=== PATIENT | female | born 1970 | race Two or more races ===

== ENCOUNTER 2018-07-02 09:40 | Emergency (ER) | payer MEDICAID ==
[2018-07-02] MEDS ORDERED: SUMAtriptan 6 MG/0.5 ML SDV SUBCUT ONE (09:55)
[2018-07-02] MEDS ORDERED: Sodium Chloride 0.9% 10 ML Syringe FLUSH PRN (10:19)
[2018-07-02] MEDS ORDERED: Ondansetron 4 MG/2 ML SDV IVPUSH ONE (10:19)
[2018-07-02] MEDS ORDERED: Sodium Chloride 0.9% 1,000 ML IV SCH (10:30)
[2018-07-02] MEDS ORDERED: Metoclopramide 10 MG/2 ML SDV IVPUSH ONE (10:49)
[2018-07-02] MEDS ORDERED: Ketorolac 30 MG/ML SDV IVPUSH ONE (10:49)
--- NOTE | 2018-07-02 11:15 | EDM.PDOC ---
ED HPI GENERAL MEDICAL PROBLEM - General Chief Complaint: Headache Stated Complaint: MEDICAL VIA [facility] Time Seen by Provider: 07/02/18 10:00 Source of Information: Reports: Patient, EMS, Family History Limitations: Reports: No Limitations - History of Present Illness INITIAL COMMENTS - FREE TEXT/NARRATIVE: 47-year-old female with a history of vascular headaches presents by ambulance with a severe migraine for the past 12 hours. It's right-sided, periorbital, she is photophobic and nauseous. It is typical of her previous migraines only worse. Also more persistent. No neurologic complaints such as weakness or numbness or asymmetry. Onset: Sudden Location: Reports: Head Severity: Severe Headache Pain Score (Numeric/FACES): 10 - Related Data Allergies Allergy/AdvReac Type Severity Reaction Status Date / Time prochlorperazine Allergy Hallucinati Verified 07/02/18 09:48 [From Compazine] ons Home Meds: Home Meds Omeprazole 20 mg PO DAILY 06/06/18 [History] Past Medical History HEENT History: Reports: Impaired Vision Gastrointestinal History: Reports: GERD - Past Surgical History GI Surgical History: Reports: Cholecystectomy Female Surgical History: Reports: Other (See Below) Other Female Surgeries/Procedures: cin3 procedure Oct 2017 Social & Family History - Tobacco Use Smoking Status *Q: Never Smoker - Caffeine Use Caffeine Use: Reports: Coffee - Alcohol Use Days Per Week of Alcohol Use: 7 Number of Drinks Per Day: 1 Total Drinks Per Week: 7 - Recreational Drug Use Recreational Drug Use: No ED ROS GENERAL - Review of Systems Review Of Systems: See Below Constitutional: Reports: Malaise. Denies: Fever, Chills HEENT: Denies: Vision Change Respiratory: Denies: Shortness of Breath GI/Abdominal: Reports: Nausea. Denies: Vomiting : Reports: No Symptoms Skin: Reports: No Symptoms Neurological: Reports: Headache Psychiatric: Reports: No Symptoms - Physical Exam Exam: See Below Exam Limited By: No Limitations General Appearance: Alert, Moderate Distress (Appears very uncomfortable) Eye Exam: Bilateral Eye: EOMI, PERRL Head Exam: Atraumatic Respiratory/Chest: No Respiratory Distress Neuro Exam (Abbreviated): Alert, Oriented, No Motor/Sensory Deficits Psychiatric: Normal Affect, Normal Mood Skin Exam: Warm, Dry Course - Vital Signs Last Recorded V/S: Last Vital Signs Temp 97.5 F 07/02/18 09:51 Pulse 101 H 07/02/18 10:56 Resp 16 07/02/18 10:56 BP 126/85 07/02/18 10:56 Pulse Ox 97 07/02/18 10:56 - Orders/Labs/Meds Orders: Active Orders 24 hr Category Date Time Status Saline Lock Insert [OM.PC] Routine Oth 07/02/18 10:19 Ordered Meds: Medications Discontinued Medications Generic Name Dose Route Start Last Admin Trade Name Freq PRN Reason Stop Dose Admin Sodium Chloride 1,000 mls @ 1,000 mls/hr 07/02/18 10:30 07/02/18 10:27 Normal Saline IV 1,000 mls/hr ASDIRECTED MARQUEZ Administration Ketorolac Tromethamine 30 mg 07/02/18 10:49 07/02/18 10:54 Toradol IVPUSH 07/02/18 10:50 30 mg ONETIME ONE Administration Metoclopramide HCl 5 mg 07/02/18 10:49 07/02/18 10:54 Reglan IVPUSH 07/02/18 10:50 5 mg ONETIME ONE Administration Ondansetron HCl 4 mg 07/02/18 10:19 07/02/18 10:27 Zofran IVPUSH 07/02/18 10:20 4 mg ONETIME ONE Administration Sodium Chloride 10 ml 07/02/18 10:19 07/02/18 10:27 Saline Flush FLUSH 10 ml ASDIRECTED PRN Administration Keep Vein Open Sumatriptan Succinate 6 mg 07/02/18 09:55 07/02/18 10:01 Imitrex SUBCUT 07/02/18 09:56 6 mg ONETIME ONE Administration - Re-Assessments/Exams Free Text/Narrative Re-Assessment/Exam: 07/02/18 11:33 6 mg of subcutaneous Imitrex was given, it did have some effect on the headache but also made her more nauseous and she's had several episodes of vomiting. An IV was then started and she was given 4 mg of IV Zofran and 1 L of normal saline started. After 20 minutes her headache was still at a "7" so she was given 30 mg of IV Toradol and 5 mg of Reglan. This gave her good relief down to a 2 and she was comfortable going home. Departure - Departure Time of Disposition: 11:58 Disposition: Home, Self-Care 01 Condition: Good Clinical Impression: Migraine - Discharge Information Instructions: Migraine Headache, [id number] Referrals: PCP,None [Primary Care Provider] - Forms: ED Department Discharge Care Plan Goals: Rest today, a repeat dose of ibuprofen or naproxen may be helpful and increase activity as tolerated. Consider rechecking tomorrow if not improving satisfactorily. - My Orders Last 24 Hours: My Active Orders 07/02/18 10:19 Saline Lock Insert [OM.PC] Routine - Assessment/Plan Last 24 Hours: My Active Orders 07/02/18 10:19 Saline Lock Insert [OM.PC] Routine
== END 2018-07-02 11:58 | disposition home or self-care (01) ==
LOC: JP.ED 09:40
DX: G43.909 Migraine, unspecified, not intractable, without status migrainosus (principal); Z88.8 Allergy status to other drugs, medicaments and biological substances; Z79.899 Other long term (current) drug therapy
CPT/HCPCS: 96361; 96372; 96374; 96375; 99284; J1885; J2405; J2765; J3030; J7030; J7050

== ENCOUNTER 2019-04-15 14:56 | Emergency (ER) | payer MEDICAID ==
--- NOTE | 2019-04-15 16:25 | CRLCT ---
INDICATION: Lower abdominal pain. TECHNIQUE: Noncontrast CT scan of the abdomen and pelvis. FINDINGS: The lung bases are unremarkable. No focal abnormalities identified in the visualized portions of the liver, spleen, pancreas, adrenal glands, and knees. No hydronephrosis. No uroliths. No gross abnormalities of the uterus or ovaries. The GI tract is incompletely distended but shows no gross abnormalities. The stomach and GE junction are not well assessed. Normal appendix. No retroperitoneal, pelvic sidewall, or mesenteric adenopathy. IMPRESSION: 1. No acute abnormalities of the abdomen or pelvis identified. Dictated by Chris Pacheco MD @ 04/15/2019 4:23:46 PM Please note that all CT scans at this facility use dose modulation, iterative reconstruction, and/or weight-based dosing when appropriate to reduce radiation dose to as low as reasonably achievable. Dictated by: Chris Pacheco MD @ 04/15/2019 16:23:55 (Electronically Signed)
--- NOTE | 2019-04-15 16:33 | EDM.PDOC ---
ED HPI GENERAL MEDICAL PROBLEM - General Chief Complaint: General Stated Complaint: RIGHT SIDE PAIN Time Seen by Provider: 04/15/19 15:15 Source of Information: Reports: Patient, Provider History Limitations: Reports: No Limitations - History of Present Illness INITIAL COMMENTS - FREE TEXT/NARRATIVE: 48-year-old female presented to clinic with nausea and diarrhea for the past day , a brief exam revealed right lower quadrant pain so she was sent over to the emergency room. She also has some dysuria. No fevers or chills. Onset: Gradual (Over the past 24 hours) Associated Symptoms: Reports: Loss of Appetite, Malaise. Denies: Fever/Chills Right Abdominal Pain Score (Numeric/FACES): 7 - Related Data Allergies Allergy/AdvReac Type Severity Reaction Status Date / Time prochlorperazine Allergy Hallucinati Verified 07/02/18 09:48 [From Compazine] ons Home Meds: Home Meds NK [No Known Home Meds] 04/15/19 [History] Past Medical History HEENT History: Reports: Impaired Vision Gastrointestinal History: Reports: GERD - Past Surgical History GI Surgical History: Reports: Cholecystectomy Female Surgical History: Reports: Other (See Below) Other Female Surgeries/Procedures: cin3 procedure Oct 2017 Social & Family History - Tobacco Use Smoking Status *Q: Never Smoker - Caffeine Use Caffeine Use: Reports: Coffee - Recreational Drug Use Recreational Drug Use: No ED ROS GENERAL - Review of Systems Review Of Systems: See Below Constitutional: Reports: Malaise, Decreased Appetite. Denies: Fever, Chills HEENT: Reports: No Symptoms Respiratory: Denies: Shortness of Breath GI/Abdominal: Reports: Abdominal Pain, Diarrhea, Nausea. Denies: Vomiting : Reports: Dysuria. Denies: Frequency Skin: Reports: No Symptoms ED EXAM, GENERAL - Physical Exam Exam: See Below Exam Limited By: No Limitations General Appearance: Alert, No Apparent Distress (Looks uncomfortable but not distressed) Eye Exam: Bilateral Eye: Normal Inspection (No jaundice) Head: Atraumatic Respiratory/Chest: No Respiratory Distress, Lungs Clear Cardiovascular: Regular Rate, Rhythm GI/Abdominal: Soft, Tender (She is tender in the right lower quadrant with some mild guarding, no significant rebound tenderness) Neurological: Alert, Oriented Skin Exam: Warm, Dry Course - Vital Signs Last Recorded V/S: Last Vital Signs Temp 97.8 F 04/15/19 15:15 Pulse 81 04/15/19 15:15 Resp 16 04/15/19 15:15 BP 115/72 04/15/19 15:15 Pulse Ox 99 04/15/19 15:15 - Orders/Labs/Meds Labs: Laboratory Tests 04/15/19 04/15/19 04/15/19 Range/Units 15:48 15:57 15:57 WBC 10.6 (4.5-11.0) K/uL RBC 4.40 (3.30-5.50) M/uL Hgb 13.3 (12.0-15.0) g/dL Hct 40.4 (36.0-48.0) % MCV 92 (80-98) fL MCH 30 (27-31) pg MCHC 33 (32-36) % Plt Count 299 (150-400) K/uL Neut % (Auto) 59 (36-66) % Lymph % (Auto) 30 (24-44) % [place] % (Auto) 10 H (2-6) % Eos % (Auto) 1 L (2-4) % Baso % (Auto) 0 (0-1) % Sodium 141 (140-148) mmol/L Potassium 3.8 (3.6-5.2) mmol/L Chloride 105 (100-108) mmol/L Carbon Dioxide 30 (21-32) mmol/L Anion Gap 6.1 (5.0-14.0) mmol/L BUN 11 (7-18) mg/dL Creatinine 0.9 (0.6-1.0) mg/dL Est Cr Clr Drug Dosing 55.51 mL/min Estimated GFR (MDRD) > 60 (>60) Glucose 93 (74-106) mg/dL Calcium 9.2 (8.5-10.1) mg/dL Total Bilirubin 0.2 (0.2-1.0) mg/dL AST 17 (15-37) U/L ALT 30 (12-78) U/L Alkaline Phosphatase 81 (46-116) U/L Total Protein 7.2 (6.4-8.2) g/dL Albumin 3.7 (3.4-5.0) g/dL Globulin 3.5 (2.3-3.5) g/dL Albumin/Globulin Ratio 1.1 L (1.2-2.2) Urine Color Yellow Urine Appearance Slightly cloudy Urine pH 7.0 (4.5-8.0) Ur Specific [place] 1.010 (1.008-1.030) Urine Protein Negative (NEGATIVE) mg/dL Urine Glucose (UA) Normal (NEGATIVE) mg/dL Urine Ketones Negative (NEGATIVE) mg/dL Urine Occult Blood Moderate (NEGATIVE) Urine Nitrite Negative (NEGATIVE) Urine Bilirubin Negative (NEGATIVE) Urine Urobilinogen Normal (NORMAL) mg/dL Ur Leukocyte Esterase Negative (NEGATIVE) Urine RBC 0-5 (0-5) Urine WBC 0-5 (0-5) Ur Epithelial Cells Rare Amorphous Sediment Not seen Urine Bacteria Rare Urine Mucus Not seen - Re-Assessments/Exams Free Text/Narrative Re-Assessment/Exam: 04/15/19 16:32 CBC CMP and UA were obtained as well as a CT scan without contrast. Everything was normal. Patient was discharged with a diagnosis of viral gastroenteritis, a note for work for the next 2 days and should rest, increase activity and diet as tolerated and return if worsening. Departure - Departure Time of Disposition: 17:01 Disposition: Home, Self-Care 01 Condition: Good Clinical Impression: Viral gastroenteritis - Discharge Information Instructions: Viral Gastroenteritis, Adult Referrals: PCP,None [Primary Care Provider] - Forms: ED Department Discharge Care Plan Goals: Rest the next several days increasing diet and activity as tolerated. Return if worsening such as fever spikes or increased pain.
== END 2019-04-15 16:57 | disposition home or self-care (01) ==
LOC: JP.ED 14:56
DX: A08.4 Viral intestinal infection, unspecified (principal); Z88.8 Allergy status to other drugs, medicaments and biological substances
CPT/HCPCS: 36415; 74176; 80053; 81001; 85025; 99284-25

== ENCOUNTER 2019-09-04 11:38 | Emergency (ER) | payer MEDICAID ==
[2019-09-04] MEDS ORDERED: Aspirin 81 MG Tab.Chew PO ONE (12:01)
[2019-09-04] MEDS ORDERED: Ketorolac 60 MG/2 ML SDV IM ONE (12:02)
[2019-09-04] MEDS ORDERED: Ondansetron 4 MG Tab.DIS PO ONE (12:03)
--- NOTE | 2019-09-04 12:04 | EDM.PDOC ---
ED HPI GENERAL MEDICAL PROBLEM - General Chief Complaint: Cardiovascular Problem Stated Complaint: CHEST PAIN Time Seen by Provider: 09/04/19 11:58 Source of Information: Reports: Patient, RN Notes Reviewed History Limitations: Reports: No Limitations - History of Present Illness INITIAL COMMENTS - FREE TEXT/NARRATIVE: 48-year-old female presents emergency department today complaint chest pain, she states the pain started last night while she was lying in bed at this time she is chest pain-free but still has some residual discomfort in her neck and arm. She has been moving but has not lifted anything for the last 3 days. No shortness of breath does feel nauseated an episode of diaphoresis this morning. No tobacco use no cardiac history no family history Left Arm Pain Score (Numeric/FACES): 7 - Related Data Allergies Allergy/AdvReac Type Severity Reaction Status Date / Time prochlorperazine Allergy Hallucinati Verified 09/04/19 11:57 [From Compazine] ons Home Meds: Home Meds NK [No Known Home Meds] 04/15/19 [History] Past Medical History HEENT History: Reports: Impaired Vision Gastrointestinal History: Reports: GERD - Past Surgical History GI Surgical History: Reports: Cholecystectomy Female Surgical History: Reports: Other (See Below) Other Female Surgeries/Procedures: cin3 procedure Oct 2017 Social & Family History - Tobacco Use Smoking Status *Q: Never Smoker - Caffeine Use Caffeine Use: Reports: Coffee, Tea - Recreational Drug Use Recreational Drug Use: No ED ROS GENERAL - Review of Systems Review Of Systems: See Below Constitutional: Reports: Diaphoresis HEENT: Reports: No Symptoms Respiratory: Reports: No Symptoms Cardiovascular: Reports: Chest Pain GI/Abdominal: Reports: Nausea : Reports: No Symptoms ED EXAM, GENERAL - Physical Exam Exam: See Below Exam Limited By: No Limitations General Appearance: Alert, WD/WN, No Apparent Distress Respiratory/Chest: No Respiratory Distress, Lungs Clear, Normal Breath Sounds, No Accessory Muscle Use, Chest Non-Tender Cardiovascular: Regular Rate, Rhythm, No Murmur GI/Abdominal: Soft, Non-Tender Course - Vital Signs Last Recorded V/S: Last Vital Signs Temp 98.1 F 09/04/19 11:55 Pulse 70 09/04/19 13:16 Resp 12 09/04/19 13:16 BP 118/81 09/04/19 13:16 Pulse Ox 97 09/04/19 13:16 - Orders/Labs/Meds Orders: Active Orders 24 hr Category Date Time Status Cardiac Monitoring [RC] .As Directed Care 09/04/19 12:01 Active EKG Documentation Completion [RC] ASDIRECTED Care 09/04/19 12:02 Active EKG 12 Lead [EK] Stat Ther 09/04/19 12:02 Ordered Labs: Laboratory Tests 09/04/19 09/04/19 09/04/19 Range/Units 12:13 12:13 12:13 WBC 6.5 (4.5-11.0) K/uL RBC 4.27 (3.30-5.50) M/uL Hgb 13.2 (12.0-15.0) g/dL Hct 39.2 (36.0-48.0) % MCV 92 (80-98) fL MCH 31 (27-31) pg MCHC 34 (32-36) % Plt Count 307 (150-400) K/uL Neut % (Auto) 50 (36-66) % Lymph % (Auto) 39 (24-44) % [place] % (Auto) 9 H (2-6) % Eos % (Auto) 2 (2-4) % Baso % (Auto) 0 (0-1) % D-Dimer, Quantitative 224 (0.0-400.0) ng/mL Sodium (140-148) mmol/L Potassium (3.6-5.2) mmol/L Chloride (100-108) mmol/L Carbon Dioxide (21-32) mmol/L Anion Gap (5.0-14.0) mmol/L BUN (7-18) mg/dL Creatinine (0.6-1.0) mg/dL Est Cr Clr Drug Dosing mL/min Estimated GFR (MDRD) (>60) BUN/Creatinine Ratio Glucose (74-106) mg/dL Calcium (8.5-10.1) mg/dL Total Bilirubin (0.2-1.0) mg/dL AST (15-37) U/L ALT (12-78) U/L Alkaline Phosphatase (46-116) U/L Troponin I (0.000-0.056) ng/mL Total Protein (6.4-8.2) g/dL Albumin (3.4-5.0) g/dL Globulin (2.3-3.5) g/dL Albumin/Globulin Ratio (1.2-2.2) Meds: Medications Discontinued Medications Generic Name Dose Route Start Last Admin Trade Name Shonna PRN Reason Stop Dose Admin Aspirin 324 mg 09/04/19 12:01 09/04/19 12:08 Aspirin PO 09/04/19 12:02 324 mg ONETIME ONE Administration Ketorolac Tromethamine 60 mg 09/04/19 12:02 09/04/19 12:10 Toradol IM 09/04/19 12:03 60 mg ONETIME ONE Administration Ondansetron HCl 4 mg 09/04/19 12:03 09/04/19 12:10 Zofran Odt PO 09/04/19 12:04 4 mg ONETIME ONE Administration Departure - Departure Time of Disposition: 14:09 Disposition: Home, Self-Care 01 Condition: Fair Clinical Impression: Chest wall pain Referrals: PCP,None [Primary Care Provider] - Forms: ED Department Discharge Additional Instructions: Continue to use ibuprofen as needed for pain control, Please followup with your primary care provider in 3-5 days if not better, please call return to the emergency department with worsening of symptoms. - My Orders Last 24 Hours: My Active Orders 09/04/19 12:01 Cardiac Monitoring [RC] .As Directed 09/04/19 12:02 EKG Documentation Completion [RC] ASDIRECTED EKG 12 Lead [EK] Stat - Assessment/Plan Last 24 Hours: My Active Orders 09/04/19 12:01 Cardiac Monitoring [RC] .As Directed 09/04/19 12:02 EKG Documentation Completion [RC] ASDIRECTED EKG 12 Lead [EK] Stat Plan: Assessment Acuity = acute Site and laterality = chest wall pain Etiology = secondary to moving lifting injury Manifestations = none Location of injury = Home Lab values = CBC, CMP, troponin, EKG, chest x-ray all within normal limits Plan Did review lab work EKG results with her she had good relief from the Toradol injection provided her pain completely resolved, she will be moving tomorrow recommend establish with primary care upon completion of journey This note was dictated using [employer] voice recognition software please call with any questions on syntax or grammar.
--- NOTE | 2019-09-04 12:51 | CRLCR ---
INDICATION: Chest pain TECHNIQUE: Chest 2 views. COMPARISON: June 06, 2018 FINDINGS: Cardiovascular and mediastinum: Heart size and vasculature are normal in caliber and appearance. Mediastinum is within normal limits. Lungs and pleural spaces: Lungs are clear. No sign of infiltrate or mass. No sign of pleural effusion. No pneumothorax. Bones and soft tissues: No significant findings. Surgical ashley in the right upper quadrant. IMPRESSION: No sign of acute disease. Dictated by Neeta Calvillo MD @ Sep 04 2019 12:48PM Signed by Dr. Neeta Calvillo @ Sep 04 2019 12:49PM
== END 2019-09-04 14:22 | disposition home or self-care (01) ==
LOC: JP.ED 11:38
DX: R07.89 Other chest pain (principal)
CPT/HCPCS: 36415; 71046; 80053; 84484; 85025; 85379; 93005; 96372; 99285; A9270; J1885